=== PATIENT | female | born 1995 | race Caucasian/White ===

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

== ENCOUNTER → 2019-06-25 | Emergency (ER) | payer MEDICAID ==
[~2019-06-25] VITALS: Ht 157.5 cm; Wt 79.0 kg
[2019-06-25 03:32] LABS: CLARITY URINE CLOUDY (CLEAR); COLOR URINE YELLOW (YELLOW); KETONES URINE NEGATIVE (NEGATIVE); LEUKOCYTE ESTERASE URINE 3+ (NEGATIVE); NITRITE URINE NEGATIVE (NEGATIVE); OCCULT BLOOD URINE NEGATIVE (NEGATIVE); PH URINE 6.5 (4.5-8.0); PROTEIN URINE NEGATIVE (NEGATIVE); UROBILINOGEN URINE 0.2 E.U./dL (0.2-1.0)
[2019-06-25 04:05] VITALS: BP 120/68
== END | disposition home or self-care (01) ==
LOC: ER 01:31
DX: O26.899 Other specified pregnancy related conditions, unspecified trimester (principal); R10.9 Unspecified abdominal pain; O21.9 Vomiting of pregnancy, unspecified; Z3A.00 Weeks of gestation of pregnancy not specified
CPT/HCPCS: 81003; 81025; 99283; Z7610